=== PATIENT | female | born 1965 | race Caucasian/White ===

== ENCOUNTER 2017-10-22 07:03 | Day surgery (SDC) | payer OTHER, BC ==
[~2017-10-22] VITALS: Ht 160 cm; Wt 70.4 kg
[~2017-10-22 07:03] MED LIST: CYMBALTA30 MG PO; Cipro PO; Cymbalta PO; EXFORGE 5/161 TABLET PO; Flagyl PO; GUMMI BEAR MUL1 EACH PO; IMITREX100 MG PO; Imitrex PO; SUPER B COM1 CAPSULE PO
[2017-10-22 07:26] VITALS: BP 167/77
[2017-10-22] MEDS ORDERED: HYDROCODON-ACE1 EAC7 PO (14:04)
[2017-10-22 14:55] VITALS: BP 137/65
[2017-10-22 15:28] VITALS: BP 146/67
== END 2017-10-22 15:47 | disposition home or self-care (01) ==
LOC: SDC 07:03
PROC: 0HBT0ZX Excision of Right Breast, Open Approach, Diagnostic (ICD-10-PCS; principal; 2017-10-22)
DX: D24.1 Benign neoplasm of right breast (principal); N60.81 Other benign mammary dysplasias of right breast; N60.31 Fibrosclerosis of right breast; I10 Essential (primary) hypertension; G43.909 Migraine, unspecified, not intractable, without status migrainosus; E66.3 Overweight; Z86.010 Personal history of colon polyps; Z80.3 Family history of malignant neoplasm of breast; Z82.49 Family history of ischemic heart disease and other diseases of the circulatory system; Z82.0 Family history of epilepsy and other diseases of the nervous system; Z80.0 Family history of malignant neoplasm of digestive organs; F32.9 Major depressive disorder, single episode, unspecified; F41.9 Anxiety disorder, unspecified
CPT/HCPCS: 88305; J2250; J3010; S0020